=== PATIENT | female | born 1980 | race Caucasian/White ===

== ENCOUNTER 2023-05-30 13:08 | Emergency (ER) | payer OTHER ==
[2023-05-30 13:13] VITALS: RESP 20; TEMP 98
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
[2023-05-30 13:50] LABS: Appearance,Urine Clear (Clear); Bilirubin,Urine Negative (Negative); Blood,Urine Negative (Negative); Color,Urine Light Yellow; Glucose,Urine (UA) Negative (Negative); Ketones,Urine Negative (Negative); Leukocyte Esterase,Urine Negative (Negative); Nitrite,Urine Negative (Negative); PH, Urine 5.5 (5.0-8.0); Protein,Urine Negative (Negative); Specific Gravity,Urine 1.009 (1.001-1.035); Urobilinogen,Urine <2.0 mg/dL (<2.0)
[2023-05-30 14:17] VITALS: BP 120/60; PULSE 78
== END 2023-05-30 14:17 | disposition home or self-care (01) ==
LOC: EC 13:08
DX: Z48.01 Encounter for change or removal of surgical wound dressing (principal); L02.811 Cutaneous abscess of head [any part, except face]; F17.200 Nicotine dependence, unspecified, uncomplicated; F12.90 Cannabis use, unspecified, uncomplicated; Z86.59 Personal history of other mental and behavioral disorders; Z88.0 Allergy status to penicillin; Z88.6 Allergy status to analgesic agent
CPT/HCPCS: 10060; 81003; 81025; 87070; 87077; 87186; 87205; 99283